=== PATIENT | female | born 1995 | race African-American/Black ===

== ENCOUNTER 2017-02-20 13:14 | Emergency (ER) | payer MEDICAID ==
[2017-02-20 13:40] VITALS: BP 143/91
[2017-02-20] MEDS ORDERED: ONDANSETRON 4 MG TAB.RAPDIS PO ONE (13:45)
--- NOTE | 2017-02-20 13:46 | ER Document Report ---
ED Medical Screen (RME) - General Chief Complaint: Nausea/Vomiting/Diarrhea Stated Complaint: ABDOMINAL PAIN/VOMITING/DIARRHEA Notes: 3 day history nausea vomiting diarrhea. Vomited on and again today at work. Has been nauseous the entire time. Has 3-4 episodes of diarrhea daily. Has been sweaty, no history of fever. LMP is now. TRAVEL OUTSIDE OF THE [place] IN LAST 30 DAYS: No - Related Data Allergies/Adverse Reactions: No Known Allergies Allergy (Verified 02/20/17 13:44) Past Medical History - Past Medical History Cardiac Medical History: Reports: Hx Hypertension - On Norvasc Denies: Hx Heart Attack Pulmonary Medical History: Denies: Hx Asthma, Hx Bronchitis, Hx COPD, Hx Pneumonia Neurological Medical History: Denies: Hx Seizures Renal/ Medical History: Denies: Hx Peritoneal Dialysis Musculoskeltal Medical History: Denies Hx Arthritis Past Surgical History: Reports: Hx Cholecystectomy, Hx Orthopedic Surgery - Nose - Immunizations Immunizations up to date: No Hx Diphtheria, Pertussis, Tetanus Vaccination: No Physical Exam - Vital signs Vitals: Temp Pulse Resp BP Pulse Ox 98.2 F 73 16 143/91 H 99 02/20/17 13:36 02/20/17 13:36 02/20/17 13:36 02/20/17 13:36 02/20/17 13:36 Course - Vital Signs Vital signs: Temp Pulse Resp BP Pulse Ox 98.2 F 73 16 143/91 H 99 02/20/17 13:36 02/20/17 13:36 02/20/17 13:36 02/20/17 13:36 02/20/17 13:36
[2017-02-20 14:43] LABS: HEMATOCRIT 23.9 % (36.0-47.0); HGB HCT DIFFERENCE -1.7; MEAN CORPUSCULAR HEMOGLOBIN 16.8 pg (27.0-33.4); RED BLOOD COUNT 4.42 10^6/uL (3.72-5.28); RED CELL DISTRIBUTION WIDTH 21.5 % (11.5-14.0); WHITE BLOOD COUNT 7.4 10^3/uL (4.0-10.5)
[2017-02-20 15:02] LABS: ALANINE AMINOTRANSFERASE 24 U/L (9-52); ALBUMIN 4.2 g/dL (3.5-5.0); ALKALINE PHOSPHATASE 51 U/L (38-126); ANION GAP 14 (5-19); ASPARTATE AMINO TRANSFERASE 18 U/L (14-36); BILIRUBIN,DIRECT 0.1 mg/dL (0.0-0.4); BILIRUBIN,TOTAL 0.4 mg/dL (0.2-1.3); BLOOD UREA NITROGEN 9 mg/dL (7-20); CARBON DIOXIDE 25 mmol/L (22-30); CHLORIDE 103 mmol/L (98-107); CREATININE RESULT 0.77 mg/dL (0.52-1.25); GLUCOSE 87 mg/dL (75-110); POTASSIUM 4.1 mmol/L (3.6-5.0); SODIUM 142.2 mmol/L (137-145); TOTAL PROTEIN 7.5 g/dL (6.3-8.2)
[2017-02-20 15:04] LABS: HEMOGLOBIN 7.4 g/dL (12.0-15.5)
[2017-02-20 15:13] LABS: BAND NEUTROPHILS % (MANUAL) 1 % (3-5); BASOPHILS % (MANUAL) 2 % (0-2); EOSINOPHILS % (MANUAL) 1 % (0-6); LYMPHOCYTES % (MANUAL) 23 % (13-45); TOTAL CELLS COUNTED 100
[2017-02-20 15:18] LABS: ANISOCYTOSIS 3+; HYPOCHROMASIA 2+; POLYCHROMASIA SLIGHT
[2017-02-20 15:19] LABS: OVALOCYTES 1+; SPHEROCYTES SLIGHT; TARGET CELLS 3+
[2017-02-20 15:20] LABS: MEAN CORPUSCULAR VOLUME 54 fl (80-97); MICROCYTOSIS 4+
[2017-02-20 15:21] LABS: POIKILOCYTOSIS 1+
--- NOTE | 2017-02-20 16:07 | ER Document Report ---
ED GI/ - General Chief Complaint: Nausea/Vomiting/Diarrhea Stated Complaint: ABDOMINAL PAIN/VOMITING/DIARRHEA Notes: Patient is being seen for nausea and vomiting and some abdominal pain which started about 3 days ago. She says on the , she was nauseated, on the , she actually vomited, and then yesterday, she had nausea without vomiting. Today at work, she vomited again. She's had diarrhea all 3 days. Generalized abdominal pain without any localization. Denies any chest pain or difficulty breathing or shortness of breath. Unaware of any fever. Patient is on her current menstrual cycle. Past history of cholecystectomy. Hypertension. TRAVEL OUTSIDE OF THE [place] IN LAST 30 DAYS: No - Related Data Allergies/Adverse Reactions: No Known Allergies Allergy (Verified 02/20/17 13:44) Past Medical History - Social History Smoking Status: Unknown if Ever Smoked Cigarette use (# per day): No Family History: DM, Hypertension, Other - Kidney disease Patient has suicidal ideation: No Patient has homicidal ideation: No - Past Medical History Cardiac Medical History: Reports: Hx Hypertension - On Norvasc Denies: Hx Heart Attack Pulmonary Medical History: Denies: Hx Asthma, Hx Bronchitis, Hx COPD, Hx Pneumonia Neurological Medical History: Denies: Hx Seizures Renal/ Medical History: Denies: Hx Peritoneal Dialysis Musculoskeltal Medical History: Denies Hx Arthritis Past Surgical History: Reports: Hx Cholecystectomy, Hx Orthopedic Surgery - Nose - Immunizations Immunizations up to date: No Hx Diphtheria, Pertussis, Tetanus Vaccination: No Review of Systems - Review of Systems Constitutional: denies: Fever Cardiovascular: denies: Chest pain Gastrointestinal: See HPI, Abdominal pain, Nausea, Vomiting Skin: No symptoms reported. denies: Rash Physical Exam - Vital signs Vitals: Temp Pulse Resp BP Pulse Ox 98.2 F 73 16 143/91 H 99 02/20/17 13:36 02/20/17 13:36 02/20/17 13:36 02/20/17 13:36 02/20/17 13:36 Interpretation: Normal - Notes Notes: PHYSICAL EXAMINATION: GENERAL: Well-appearing, in no acute distress. HEAD: Atraumatic, normocephalic. EYES: Pupils equal round and reactive to light, extraocular movements intact. ENT: oropharynx clear without exudates. Moist mucous membranes. NECK: Normal range of motion, supple. LUNGS: Breath sounds clear and equal bilaterally. HEART: Regular rate and rhythm without murmurs. ABDOMEN: Soft, only minimal tenderness to press throughout the abdomen. No localized tenderness. No masses felt. No guarding or rebound. BACK: No tenderness throughout entire back. EXTREMITIES: Normal range of motion without pain. NEUROLOGICAL: Normal speech, normal gait. Normal sensory, motor, and reflex exams. Awake, alert, and oriented x3. Cranial nerves normal. PSYCH: Normal mood, normal affect. SKIN: Warm, dry, no rashes. Course - Re-evaluation Re-evalutation: 02/20/17 20:21 Patient's labs are unremarkable except for the fact that she is anemic with a hemoglobin of 7.4. I questioned her as to whether she had sickle cell disease or trait and she says she thought she may have been told she had sickle cell trait. She does not note any other possible causes of anemia such as thalassemia. 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 Patient says she's currently on her menstrual cycle and does feel tired during these times. Her CBC indices suggesting iron deficient anemia. Borderline some iron and referred to local development technical lead. - Vital Signs Vital signs: Temp Pulse Resp BP Pulse Ox 98.2 F 73 16 143/91 H 99 02/20/17 13:36 02/20/17 13:36 02/20/17 13:36 02/20/17 13:36 02/20/17 13:36 - Laboratory Result Diagrams: 02/20/17 14:15 02/20/17 14:15 Laboratory results interpreted by me: 02/20/17 14:15 Hgb 7.4 L Hct 23.9 L MCV 54 L MCH 16.8 L MCHC 31.0 L RDW 21.5 H Band Neutrophils % 1 L Discharge - Discharge Clinical Impression: Vomiting and diarrhea, Viral illness Anemia Qualifiers: Anemia type: iron deficiency Iron deficiency anemia type: unspecified iron deficiency Qualified Code(s): D50.9 - Iron deficiency anemia, unspecified Condition: Stable Disposition: HOME, SELF-CARE Additional Instructions: VOMITING: Vomiting (or nausea without vomiting) can be caused by many other different problems. It can mean that something's wrong with the stomach, such as ulcers or inflammation or the intestinal tract, such as appendicitis. But it can also be a symptom of a problem that has nothing to do with the stomach or intestines. Vomiting is common with severe headaches, earaches, tonsillitis, and kidney infections, etc. We see it with pneumonia or heart attacks. Drugs can cause nausea and vomiting. Many abdominal problems cause vomiting; for example, gallstones, kidney stones, pancreatitis, and intestinal obstruction ( blocked bowels). In most cases, curing the vomiting depends on fixing the problem that caused it. For temporary relief, we may use an anti-nausea medicine. For home use, we can prescribe suppositories, chewable pills, pills that dissolve in the mouth, or liquid anti-nausea drugs. If the vomiting seems to be caused by a problem in the stomach, acid-suppressing drugs may be prescribed as well. It's important to avoid dehydration. Sip small amounts of clear liquids ( soft drinks, tea, broth, etc) . Try to take fluids frequently even if you are vomiting to prevent dehydration. Take increasing amounts of fluid and when liquids are being consumed successfully, advance to small amounts of bland food (toast, soups, mashed potatoes, etc.) until you are able to resume a regular diet. Avoid aspirin, tobacco, and alcohol. If the vomiting worsens, if the problem that's making you vomit worsens, or if there's evidence of bleeding in the stomach (such as black, tarry stool, or bloody or black vomit), you should return immediately. Also, return if abdominal pain worsens or becomes localized to one area or you develop high fever. Call your doctor if you aren't improved in 24 hours. DIARRHEA, NON-SPECIFIC: Diarrhea means frequent, watery stools. There are many causes. Any problem that keeps the intestinal tract from absorbing water from the stool can lead to diarrhea. A sudden new diarrhea problem is usually caused by a virus, food sensitivity, toxic bacteria, or drugs. In this case, we expect the problem to go away soon. Testing is done only if you seem seriously ill from the diarrhea. If you have chronic diarrhea, or diarrhea that keeps coming back, we need to find out why. Chronic diarrhea can be due to inflammation of the bowels such as Crohn's disease or ulcerative colitis, food sensitivity such as intolerance to lactose or wheat protein, irritable bowel syndrome, and other problems. If your diarrhea is a significant problem but it's not clear why you have it, we' ll refer you to a specialist for further testing. During an episode of diarrhea, drink small amounts (two to six ounces) of clear liquids (soft drinks, sport drinks, herb teas, broth, etc). Take fluids frequently to prevent dehydration. It's usually not a problem to take mild anti- diarrhea medication such as Kaopectate or Pepto-Bismol. As the diarrhea eases, advance to small amounts of bland food (mashed potato, toast) for 24 hours. Call the physician if blood appears in your vomit or stool, if vomiting lasts longer than 24 hours, if the abdominal pain worsens or becomes localized to one area, if you develop high fever, or if you become lightheaded and weak. VIRAL SYNDROME: The physician has diagnosed a viral infection. Viruses not only cause "colds," but can cause many different symptoms including generalized aching, fever, headache, cough, diarrhea, nausea, vomiting, and fatigue. The treatment, for the most part, is simply relief of symptoms. This means that antibiotics are usually not given. Rest, fluids, pain medications and, occasionally, medication for the specific symptoms that are most bothersome will be prescribed. Use good handwashing to avoid passing the virus to others. Shared toys should be cleaned with disinfectant. Clean the toilets, sinks, and counter surfaces in bathrooms. Launder clothing in hot water. Contact the physician if you develop any new or unusual symptoms such as severe headache, stiff neck, high fever, chest pain, productive cough, or shortness of breath. You should be rechecked if you don't see marked improvement within seven to 10 days. ANTINAUSEA MEDICATION: You have been given a medication to suppress nausea and vomiting. This type of medication can be given as a shot, pill, or suppository. It will usually last for many hours. Pills and shots usually last six to eight hours. For the typical illness, only one or two doses of the medication may be necessary. Mild lightheadedness may occur. This type of medicine can cause drowsiness. Do not drive or operate dangerous machinery while under its influence. Do not mix with alcohol. See your doctor at once if you have muscle spasms or tightness, or uncontrollable motions (particularly of the neck, mouth, or jaw). Persistent vomiting or severe lightheadedness should also be evaluated by the physician. FOLLOW-UP CARE: If you have been referred to a physician for follow-up care, call the physician s office for an appointment as you were instructed or within the next two days. If you experience worsening or a significant change in your symptoms, notify the physician immediately or return to the Emergency Department at any time for re-evaluation. Anemia You have been found to have a significant anemia (a lower than normal amount of red blood cells). Anemia can be due to iron deficiency, vitamin deficiency, abnormal bleeding, or internal diseases. Usually, further tests are necessary to find the exact cause of the anemia. The most common cause of anemia is iron deficiency, often brought on by blood loss. This can be treated with iron supplements. If this appears to be the most likely cause, iron tablets may be prescribed even before all tests are complete. Contact the doctor at once if you note black or tarry-looking stools, bloody vomiting, shortness of breath, chest pain, or faintness. Anemia, Iron Deficiency You have anemia (a lower than normal amount of red blood cells). Our tests show it's due to lack of iron in your body. In infants and children, iron deficiency is usually due to lack of iron in the diet. In adults, it's most often caused by blood loss (heavy periods or intestinal bleeding) or by . If the cause of iron deficiency is not clear, we evaluate for hidden intestinal bleeding. Another possible cause is failure to absorb iron properly. Iron-deficiency is treated with iron supplements. Iron pills can upset your stomach and cause constipation. Taking it with food decreases nausea. Expect the stool to become darker (but not black). Taking iron with a juice high in vitamin C (orange juice, tomato juice) increases absorption. You can increase your dietary iron by eating liver, oysters, and lean beef ; wheat germ, peas, and lentils; and molasses, dried prunes, spinach, and broccoli. Contact the doctor at once if you note black or tarry-looking stools, bloody vomiting, shortness of breath, chest pain, or faintness. Recommend you follow up with a development technical lead, and I provided information for your contact Dr. Chan, with a local development technical lead. Prescriptions: Ferrous Sulfate 325 mg PO BID #60 tablet. Promethazine HCl [Phenergan 25 mg Tablet] 1 - 2 tab PO Q6H PRN #15 tablet PRN Reason: Forms: Return to Work Referrals: ABEL CHAN MD [ACTIVE STAFF] - Follow up in 1 week
== END 2017-02-20 16:20 | disposition home or self-care (01) ==
LOC: ER 13:14
DX: R11.2 Nausea with vomiting, unspecified (principal); R19.7 Diarrhea, unspecified; B34.9 Viral infection, unspecified; D50.9 Iron deficiency anemia, unspecified; R10.84 Generalized abdominal pain; I10 Essential (primary) hypertension; Z90.49 Acquired absence of other specified parts of digestive tract
CPT/HCPCS: 99283; 36415; 84703; 85025; 80053; S0119

== ENCOUNTER 2017-12-18 14:54 | Emergency (ER) | payer SELFPAY ==
[2017-12-18 15:06] VITALS: BP 173/93
== END 2017-12-18 16:34 | disposition left against medical advice (07) ==
LOC: ER 14:54
DX: Z53.21 Procedure and treatment not carried out due to patient leaving prior to being seen by health care provider (principal)

== ENCOUNTER 2017-12-19 16:27 | Emergency (ER) | payer SELFPAY ==
[2017-12-19] MEDS ORDERED: IBUPROFEN 600 MG TABLET PO ONE (17:37)
--- NOTE | 2017-12-19 17:41 | ER Document Report ---
ED Skin Rash/Insect Bite/Abscs - General Chief Complaint: Skin Problem Stated Complaint: POSSIBLE BUG BITE Time Seen by Provider: 12/19/17 17:29 Mode of Arrival: Ambulatory Information source: Patient Notes: 22-year-old female presents to ED for complaint of bug bite to the right hand 3 days. She states she has pain and swelling to the right hand. There is no open wounds. Minimal swelling noted. TRAVEL OUTSIDE OF THE [place] IN LAST 30 DAYS: No - HPI Patient complains to provider of: Possible insect bite Onset: Other - 3 days Onset/Duration: Gradual Quality of pain: Other - Stinging to hang Severity: Mild Pain Level: 1 Skin Character: Erythema - Mild swelling to right hand Quality of rash: Painful - Mild Identify cause: Yes - States insect bite Exacerbated by: Denies Relieved by: Denies Similar symptoms previously: Yes Recently seen / treated by doctor: No - Related Data Allergies/Adverse Reactions: No Known Allergies Allergy (Verified 12/19/17 16:27) Past Medical History - General Information source: Patient - Social History Smoking Status: Never Smoker Cigarette use (# per day): No Chew tobacco use (# tins/day): No Smoking Education Provided: No Frequency of alcohol use: None Drug Abuse: None Lives with: Family Family History: DM, Hypertension, Other - Kidney disease. denies: Arthritis, CAD, COPD, CVA, Hyperlipidemia, Malignancy, Thyroid Disfunction Patient has suicidal ideation: No Patient has homicidal ideation: No - Past Medical History Cardiac Medical History: Reports: Hx Hypertension - On Norvasc Pulmonary Medical History: Reports: None EENT Medical History: Reports: None Neurological Medical History: Reports: None Endocrine Medical History: Reports: None Renal/ Medical History: Reports: None Malignancy Medical History: Reports: None GI Medical History: Reports: None Musculoskeltal Medical History: Reports None Skin Medical History: Reports None Psychiatric Medical History: Reports: None Traumatic Medical History: Reports: None Infectious Medical History: Reports: None Past Surgical History: Reports: Hx Cholecystectomy, Hx Nose Surgery - Polyps - Immunizations Immunizations up to date: No Hx Diphtheria, Pertussis, Tetanus Vaccination: No Review of Systems - Review of Systems Notes: Constitutional: [PRESENT: as per HPI. ABSENT: chills, fever(s), headache(s), weight gain, weight loss] Eyes: [ABSENT: visual disturbances] Ears: [ABSENT: hearing changes] Cardiovascular: [ABSENT: chest pain, dyspnea on exertion, edema, orthropnea, palpitations] Respiratory: [ABSENT: cough, hemoptysis] Gastrointestinal: [ABSENT: abdominal pain, constipation, diarrhea, hematemesis, hematochezia, nausea, vomiting] Genitourinary: [ABSENT: dysuria, hematuria] Musculoskeletal: [ABSENT: joint swelling] Integumentary: Insect bite to right hand 3 days ago Neurological: [ABSENT: abnormal gait, abnormal speech, confusion, dizziness, focal weakness, syncope] Psychiatric: [ABSENT: anxiety, depression, homicidal ideation, suicidal ideation ] Endocrine: [ABSENT: cold intolerance, heat intolerance, menstrual abnormalities , polydipsia, polyuria] Hematologic/Lymphatic: [ABSENT: easy bleeding, easy bruising, lymphadenopathy] Physical Exam - Vital signs Vitals: Temp Pulse Resp BP Pulse Ox 98.3 F 77 16 139/94 H 100 12/19/17 16:36 12/19/17 16:36 12/19/17 16:36 12/19/17 16:36 12/19/17 16:36 - Notes Notes: PHYSICAL EXAMINATION: GENERAL: Well-appearing, well-nourished and in no acute distress. HEAD: Atraumatic, normocephalic. EYES: Pupils equal round and reactive to light, extraocular movements intact, conjunctiva are normal. ENT: Nares patent, oropharynx clear without exudates. Moist mucous membranes. NECK: Normal range of motion, supple without lymphadenopathy LUNGS: Breath sounds clear to auscultation bilaterally and equal. No wheezes rales or rhonchi. HEART: Regular rate and rhythm without murmurs ABDOMEN: Soft, nontender, nondistended abdomen. No guarding, no rebound. No masses appreciated. Female : deferred Musculoskeletal: Normal range of motion, no pitting or edema. No cyanosis. NEUROLOGICAL: Cranial nerves grossly intact. Normal speech, normal gait. Normal sensory, motor exams PSYCH: Normal mood, normal affect. SKIN: Minimal redness and swelling to the right hand from insect bite 3 days ago. No signs or symptoms of infection very minimal swelling normal for an insect bite. Course - Re-evaluation Re-evalutation: 12/20/17 01:18 Patient given instructions on use of ibuprofen and Benadryl for insect bites. Patient also given instructions for ice to reduce swelling. Patient verbalized understanding of instructions. - Vital Signs Vital signs: Temp Pulse Resp BP Pulse Ox 98.3 F 71 16 143/97 H 100 12/19/17 16:36 12/19/17 18:00 12/19/17 18:00 12/19/17 18:00 12/19/17 18:00 Discharge - Discharge Clinical Impression: Insect bite of right hand with local reaction Qualifiers: Encounter type: initial encounter Qualified Code(s): S60.561A - Insect bite ( nonvenomous) of right hand, initial encounter Condition: Stable Disposition: HOME, SELF-CARE Instructions: Family Physicians / Practices Additional Instructions: Insect Bites You have been bitten by an insect. These bites can cause two types of swelling: an initial swelling due to insect saliva or injected poison, and a late reaction due to your body's allergic reaction. This initial local reaction may be uncomfortable but is not dangerous. Often there's an itchy "hive" at the bite location. This is treated with antihistamines, cold compresses, and resting the affected body part. The later reaction often develops about the second day. The entire area becomes very swollen, red, itchy, and tender. This is an allergic reaction. Your body is attacking the leftover insect saliva or venom. This type of allergy is unpleasant, but not dangerous. We treat this swelling with cortisone -type medicine. Sometimes we use antibiotics if we're worried about infection. Antihistamines help with the itch. If you develop a fever, chills, a red streak, or swollen glands in the area of the bite, infection may be starting. Return at once. Antihistamines An antihistamine has been prescribed to control your symptoms. Antihistamines are used for many reasons, including itching, watering eyes, runny nose, allergic swelling, hives, and insect stings. Antihistamines may cause drowsiness, especially with the first dose. Do not operate machinery or drive while under the effects of the medication. Other common side effects include dry mouth and eyes. In older persons, antihistamines can occasionally cause urinary retention, constipation, and trouble focusing the eyes. Do not combine the medication with alcohol, or with any other medication without talking to your doctor. Acetaminophen Acetaminophen may be taken for pain relief or fever control. It's much safer than aspirin, offering a wider range of "safe" dosages. It is safe during . Some brand names are Tylenol, Panadol, Datril, Anacin 3, Tempra, and Liquiprin. Acetaminophen can be repeated every four hours. The following are maximum recommended dosages: WEIGHT Dose Drops Elixir Chewable( 80mg) (LBS.) drprs=droppers tsp=teaspoon 6 40 mg .4 ml (1/2) 6-11 80 mg .8 ml (full) 1/2 tsp 1 tab 12-16 120 mg 1 1/2 drprs 3/4 tsp 1 1/2 tabs 17-23 160 mg 2 drprs 1 tsp 2 tabs 24-30 240 mg 3 drprs 1 1/2 tsp 3 tabs 30-35 320 mg 2 tsp 4 tabs 36-41 360 mg 2 1/4 tsp 4 1 /2 tabs 42-47 400 mg 2 1/2 tsp 5 tabs 48-53 480 mg 3 tsp 6 tabs 54-59 520 mg 3 1/4 tsp 6 1 /2 tabs 60-64 560 mg 3 1/2 tsp 7 tabs 65-70 600 mg 3 3/4 tsp 7 1 /2 tabs 71-76 640 mg 4 tsp 8 tabs 77-82 720 mg 4 1/2 tsp 9 tabs 83-88 800 mg 5 tsp 10 tabs >89 pounds or adults 650 mg to 900 mg Acetaminophen can be repeated every four hours. Maximum daily dose not to exceed 4000 mg. These maximum recommended dosages are slightly higher than the dosages written on the product container, but these dosages are very safe and well below the toxic dosage for acetaminophen. Ibuprofen Ibuprofen is an excellent, safe drug for pain control. In addition, it has potent antiinflammatory effects which are beneficial, especially in the treatment of injuries, arthritis, or tendonitis. It's best to take ibuprofen with food. Persons with ulcer disease or allergy to aspirin should notify their physician of this before taking ibuprofen. Take the medication exactly as prescribed. Don't take additional doses unless instructed to do so by your doctor. If you develop wheezing, shortness of breath, hives, faintness, stomach pain, vomiting, or dark black stools, return for re-evaluation at once. Ice Packs Apply ice packs frequently against the painful area. Many different schedules are recommended, such as "20 minutes on, 20 minutes off" or "one hour ice, two hours rest." If you need to work, you may need to go longer between ice treatments. You should plan to have the area ice packed AT LEAST one fourth of the time. The ice should be applied over the wrap, tape, or splint, or over a layer of cloth -- not directly against the skin. Some ice bags have a built-in cloth and can be put directly on the skin. FOLLOW-UP CARE: If you have been referred to a physician for follow-up care, call the physician s office for an appointment as you were instructed or within the next two days. If you experience worsening or a significant change in your symptoms, notify the physician immediately or return to the Emergency Department at any time for re-evaluation. Forms: Elevated Blood Pressure, Return to Work Referrals: DEUCE CORDOVA MD [Primary Care Provider] - Follow up as needed
[2017-12-19 18:49] VITALS: BP 143/97
== END 2017-12-19 18:00 | disposition home or self-care (01) ==
LOC: ER 16:27
DX: S60.561A Insect bite (nonvenomous) of right hand, initial encounter (principal); M79.641 Pain in right hand; M79.89 Other specified soft tissue disorders; W57.XXXA Bitten or stung by nonvenomous insect and other nonvenomous arthropods, initial encounter
CPT/HCPCS: 99283

== ENCOUNTER 2018-02-28 18:17 | Emergency (ER) | payer SELFPAY ==
--- NOTE | 2018-02-28 21:00 | RADIOLOGY REPORT (SQ) ---
EXAM DESCRIPTION: CHEST 2 VIEWS COMPLETED DATE/TIME: 02/28/2018 8:43 pm REASON FOR STUDY: Chest pain COMPARISON: None. EXAM PARAMETERS: NUMBER OF VIEWS: two views TECHNIQUE: Digital Frontal and Lateral radiographic views of the chest acquired. RADIATION DOSE: NA LIMITATIONS: none FINDINGS: LUNGS AND PLEURA: No opacities, masses or pneumothorax. No pleural effusion. MEDIASTINUM AND HILAR STRUCTURES: No masses or contour abnormalities. HEART AND VASCULAR STRUCTURES: Heart normal size. No evidence for failure. BONES: No acute findings. HARDWARE: None in the chest. OTHER: No other significant finding. IMPRESSION: NO ACUTE RADIOGRAPHIC FINDING IN THE CHEST. TECHNICAL DOCUMENTATION: JOB ID: [id number] [place]-72 2010 [employer]- All Rights Reserved Reading location - IP/workstation name: [email or web address]
[2018-02-28] MEDS ORDERED: ONDANSETRON HCL INJ/PF 4 MG/2 ML SDV IV ONE (22:12)
[2018-02-28] MEDS ORDERED: NORMAL SALINE 1000 ML 1,000 ML IV ONE (22:12)
--- NOTE | 2018-02-28 22:13 | ER Document Report ---
ED General - General Chief Complaint: Chest Pain Stated Complaint: CHEST PAIN Time Seen by Provider: 02/28/18 22:00 Notes: Patient is a 22-year-old female presents with complaint of chest pain. Chest pain is substernal worse when she coughs and also if she was a certain way. She says she has been coughing a bit the last few days. No fevers. No vomiting. No diarrhea. No history of heart disease. No recent leg pain or leg swelling. No recent surgeries. She did have a recent flight from [place]. She said it went fine and she did not have any problems during the flight. She is on control. She does not smoke. Does have a history of hypertension has been off her medication for approximately a month. She said she is normally on Norvasc. TRAVEL OUTSIDE OF THE [place] IN LAST 30 DAYS: No - Related Data Allergies/Adverse Reactions: No Known Allergies Allergy (Verified 02/28/18 18:19) Past Medical History - Social History Smoking Status: Never Smoker Chew tobacco use (# tins/day): No Frequency of alcohol use: None Drug Abuse: None Family History: DM, Hypertension, Other - Kidney disease. denies: Arthritis, CAD, COPD, CVA, Hyperlipidemia, Malignancy, Thyroid Disfunction Patient has suicidal ideation: No Patient has homicidal ideation: No - Past Medical History Cardiac Medical History: Reports: Hx Hypertension - On Norvasc Denies: Hx Heart Attack Pulmonary Medical History: Denies: Hx Asthma, Hx Bronchitis, Hx COPD, Hx Pneumonia Neurological Medical History: Denies: Hx Seizures Renal/ Medical History: Denies: Hx Peritoneal Dialysis Musculoskeltal Medical History: Denies Hx Arthritis Past Surgical History: Reports: Hx Cholecystectomy, Hx Nose Surgery - Polyps, Hx Orthopedic Surgery - Nose - Immunizations Immunizations up to date: No Hx Diphtheria, Pertussis, Tetanus Vaccination: No Review of Systems - Review of Systems Notes: My Normal Review Basic REVIEW OF SYSTEMS: CONSTITUTIONAL : Denies fever, chills, or sweats. Denies recent illness. CARDIOVASCULAR: Chest pain RESPIRATORY: Denies cough, cold, or chest congestion. Denies shortness of breath, difficulty breathing, or wheezing. GASTROINTESTINAL: Denies abdominal pain. Denies nausea, vomiting, or diarrhea. Denies constipation. Last BM: MUSCULOSKELETAL: Denies neck or back pain or joint pain or swelling. SKIN: Denies rash or skin lesions. NEUROLOGICAL: Denies altered mental status or loss of consciousness. Denies headache. Denies weakness or paralysis or loss of use of either side. Denies problems with gait or speech. Denies sensory or motor loss. ALL OTHER SYSTEMS REVIEWED AND NEGATIVE. Physical Exam - Vital signs Vitals: Temp Pulse Resp BP Pulse Ox 98.1 F 82 16 144/79 H 99 02/28/18 18:30 02/28/18 18:30 02/28/18 18:30 02/28/18 18:30 02/28/18 18:30 - Notes Notes: General Appearance: Well nourished, alert, cooperative, no acute distress, no obvious discomfort. Well-appearing. Vitals: reviewed, See vital signs table. Eyes: PERRL, EOMI, Conjuctiva clear Chest wall: Pain is easily reproducible to palpation over the anterior chest wall close to the sternal border. Lungs: No wheezing, No rales, No rhonci, No accessory muscle use, good air exchange bilaterally. Heart: Normal rate, Regular rythm, No murmur, no rub Extremities: strength 5/5 in all extremities, good pulses in all extremities, no swelling or tenderness in the extremities, no edema. Skin: warm, dry, appropriate color, no rash Neuro: speech clear, oriented x 3, normal affect, responds appropriately to questions. Course - Re-evaluation Re-evalutation: 03/01/18 05:19 Patient's pain is easily reproducible to palpation also easily reproduced with coughing. Suspect she either has gastroenteritis or pleurisy. Do not suspect coronary disease. Her only risk factor is hypertension. She is otherwise a young healthy 22-year-old. She looks well and her EKG does not show any concerning findings. I will re-prescribe her Norvasc for her. I encouraged her strongly follow-up closely with her doctor. I encouraged her return to ER immediately if she has worsening recurrent pain, difficulty breathing, or she feels unwell. I do not suspect PE as she is not tachycardic, not tachypneic, not hypoxic, and does not have any leg pain or leg swelling. Dictation of this chart was performed using voice recognition software; therefore, there may be some unintended grammatical errors. 03/01/18 05:20 - Vital Signs Vital signs: Temp Pulse Resp BP Pulse Ox 97.7 F 66 18 147/98 H 100 02/28/18 22:15 02/28/18 22:15 02/28/18 22:15 02/28/18 22:15 02/28/18 22:15 - EKG Interpretation by Me Additional EKG results interpreted by me: 02/28/18 22:02 EKG is reviewed and interpreted by me. EKG shows sinus rhythm with a rate of [address] segment elevation or depression. No ischemic T-wave inversions. SC interval, QRS duration, QTc intervals are within normal range. No old EKG available for comparison. Discharge - Discharge Clinical Impression: Chest pain Qualifiers: Chest pain type: unspecified Qualified Code(s): R07.9 - Chest pain, unspecified Condition: Good Disposition: HOME, SELF-CARE Additional Instructions: Please take your high blood pressure as prescribed and follow up with your doctor in 3-5 days for close reevaluation. Currently I do not see any evidence of anything dangerous causing your chest pain. Please take Motrin or Tylenol for your pain. Please return to the ER immediately if you have worsening chest pain, fevers, difficulty breathing, or feel unwell. Prescriptions: Amlodipine Besylate [Norvasc 5 mg Tablet] 5 mg PO DAILY #30 tablet Forms: Return to Work Referrals: KEN CORDOVA MD [Primary Care Provider] - 03/02/18
[2018-02-28 22:19] VITALS: BP 147/98
[2018-02-28] MEDS ORDERED: AMLODIPINE BESYLATE 5 MG TABLET PO ONE (22:20)
--- NOTE | 2018-03-01 08:13 | EKG REPORT ---
SEVERITY:- NORMAL ECG - SINUS RHYTHM : Confirmed by: Mateo Nunez MD 01-Mar-2018 08:13:01
== END 2018-02-28 22:40 | disposition home or self-care (01) ==
LOC: ER 18:17
DX: R07.89 Other chest pain (principal); R05 Cough; Z79.3 Long term (current) use of hormonal contraceptives; I10 Essential (primary) hypertension
CPT/HCPCS: 71046; 93005; 93010; 99285

== ENCOUNTER 2019-06-30 10:56 | Emergency (ER) | payer SELFPAY ==
[2019-06-30] MEDS ORDERED: ACETAMINOPHEN 325 MG TABLET PO ONE (11:58)
--- NOTE | 2019-06-30 11:58 | ER Document Report ---
HPI - HPI Time Seen by Provider: 06/30/19 11:42 Pain Level: 4 Context: Patient is a 23-year-old female presents to the emergency department with a chief complaint of left rib pain. Patient states she woke up this morning with left lateral and posterior rib pain. Patient states this is worse when she takes a deep breath. Patient denies shortness of breath, chest pain, recent cough or cold. Patient states he rib pain is worse with movement. Patient denies trauma or fall. Patient reports she is 9 weeks and is currently denying any vaginal bleeding, vaginal discharge or abdominal pain. Patient denies urinary symptoms. Patient denies fever. - CONSTITUTIONAL Constitutional: DENIES: Fever, Chills - REPRODUCTIVE Reproductive: DENIES: : Past Medical History - General Information source: Patient - Social History Smoking Status: Never Smoker Frequency of alcohol use: None Drug Abuse: None Lives with: Spouse/Significant other Family History: DM, Hypertension, Other - Kidney disease. denies: Arthritis, CAD, COPD, CVA, Hyperlipidemia, Malignancy, Thyroid Disfunction Patient has suicidal ideation: No Patient has homicidal ideation: No - Past Medical History Cardiac Medical History: Reports: Hx Hypertension - On Norvasc Denies: Hx Heart Attack Pulmonary Medical History: Reports: None Denies: Hx Asthma, Hx Bronchitis, Hx COPD, Hx Pneumonia EENT Medical History: Reports: None Neurological Medical History: Reports: None. Denies: Hx Seizures Endocrine Medical History: Reports: None Renal/ Medical History: Reports: None. Denies: Hx Peritoneal Dialysis Malignancy Medical History: Reports: None GI Medical History: Reports: None Musculoskeletal Medical History: Reports None, Denies Hx Arthritis Skin Medical History: Reports None Psychiatric Medical History: Reports: None Traumatic Medical History: Reports: None Infectious Medical History: Reports: None Past Surgical History: Reports: Hx Cholecystectomy, Hx Nose Surgery - Polyps, Hx Orthopedic Surgery - Nose - Immunizations Immunizations up to date: No Hx Diphtheria, Pertussis, Tetanus Vaccination: No Vertical Provider Document - CONSTITUTIONAL Agree With Documented VS: Yes Exam Limitations: No Limitations General Appearance: No Apparent Distress - INFECTION CONTROL TRAVEL OUTSIDE OF THE [place] IN LAST 30 DAYS: No - HEENT HEENT: Atraumatic, Normocephalic, PERRLA - NECK Neck: Normal Inspection - RESPIRATORY Respiratory: Breath Sounds Normal, No Respiratory Distress Notes: Patient has tenderness to palpation to the left lateral and posterior ribs. There is no edema, ecchymosis, abrasion or erythema noted to the skin. - CARDIOVASCULAR Cardiovascular: Regular Rate, Regular Rhythm - GI/ABDOMEN Gastrointestinal: Abdomen Soft, Abdomen Non-Tender, Normal Bowel Sounds - MUSCULOSKELETAL/EXTREMETIES Musculoskeletal/Extremeties: FROM, Non-Tender - NEURO Level of Consciousness: Awake, Alert, Appropriate - DERM Integumentary: Warm, Dry, No Rash Course - Re-evaluation Re-evalutation: 06/30/19 11:56 Upon initial assessment patient resting comfortably on chair. At this time I do not believe patient requires imaging. I did inform the patient to take Tylenol as needed for pain and to use cool or warm compresses to the site. I did inform the patient she could have slept on her side wrong as this does appear to be musculoskeletal in nature. Patient verbalizes understanding and was given strict return precautions. - Vital Signs Vital signs: Temp Pulse Resp BP Pulse Ox 97.8 F 84 20 147/80 H 100 06/30/19 11:01 06/30/19 11:01 06/30/19 11:01 06/30/19 11:01 06/30/19 11:01 Discharge - Discharge Clinical Impression: Rib pain on left side, Musculoskeletal pain Condition: Stable Disposition: HOME, SELF-CARE Additional Instructions: Today you are seen in the emergency department for left rib pain. At this time I do not think you require imaging such as an x-ray since there was no trauma or fall. Your symptoms are consistent with musculoskeletal pain. Please use cool or warm compresses to the site. Please return to the emergency department if the pain becomes severe or he develops swelling to the area, discoloration to the skin or any new or worsening symptoms. Muscle Strain You have strained a muscle -- torn the fibers within the muscle. This often occurs with strenuous exertion, or during an injury that suddenly stretches the muscle. The seriousness of a strain varies. Some strains heal within days, others cause problems for months. X-rays cannot show a muscle strain. X-rays are taken only if symptoms suggest that a fracture could be present. The usual treatment of a muscle strain is rest and ice packs. Sometimes, a sling, splint, or crutches may be necessary to rest the muscle. The muscle can be used again once pain subsides. Severe strains require a special exercise and stretching program to prevent permanent stiffness and disability. Your doctor will advise you if this will be necessary. Call the doctor immediately if pain or swelling becomes severe, or if numbness or discoloration develop. Forms: Return to Work Referrals: KEN CORDOVA MD [Primary Care Provider] - Follow up as needed
[2019-06-30 12:07] VITALS: BP 133/84
== END 2019-06-30 12:06 | disposition home or self-care (01) ==
LOC: ER 10:56
DX: O26.891 Other specified pregnancy related conditions, first trimester (principal); R07.81 Pleurodynia; M79.10 Myalgia, unspecified site; O16.1 Unspecified maternal hypertension, first trimester; Z3A.09 9 weeks gestation of pregnancy
CPT/HCPCS: 99283

== ENCOUNTER → 2020-01-18 | Outpatient (CLI) | payer MEDICAID ==
[2020-01-18 12:44] LABS: APPEARANCE,URINE SLIGHTLY-CLOUDY; BILIRUBIN,URINE NEGATIVE (NEGATIVE); GLUCOSE, URINE NEGATIVE (NEGATIVE); KETONES,URINE NEGATIVE (NEGATIVE); LEUKOCYTE ESTERASE,URINE LARGE (NEGATIVE); NITRITE,URINE NEGATIVE (NEGATIVE); PROTEIN,URINE 30 mg/dL (NEGATIVE); URINE SPECIFIC GRAVITY 1.023
[2020-01-18 12:46] LABS: COLOR,URINE DARK YELLOW
[2020-01-18 13:02] LABS: URINE AMPHETAMINES SCREEN NEGATIVE; URINE BARBITURATES SCREEN NEGATIVE; URINE BENZODIAZEPINES SCREEN NEGATIVE; URINE COCAINE SCREEN NEGATIVE; URINE METHADONE SCREEN NEGATIVE; URINE PHENCYCLIDINE SCREEN NEGATIVE
[2020-01-18 13:07] LABS: URINE MARIJUANA (THC) SCREEN UNCONFIRMED POSITIVE
== END ==
LOC: LC 11:48
PROVIDERS: ATTEND Student in an Organized Health Care Education/Training Program
DX: Z34.93 Encounter for supervision of normal pregnancy, unspecified, third trimester (principal); Z3A.37 37 weeks gestation of pregnancy
CPT/HCPCS: 80307; 81005

== ENCOUNTER 2020-01-30 23:23 | Inpatient (IN) | payer MEDICAID ==
[2020-01-31 00:42] LABS: HEMOGLOBIN 11.8 g/dL (12.0-15.5); MEAN CORPUSCULAR HEMOGLOBIN 24.9 pg (27.0-33.4); MEAN CORPUSCULAR HGB CONC 33.7 g/dL (32.0-36.0); MEAN CORPUSCULAR VOLUME 74 fl (80-97); PLATELET COUNT 247 10^3/uL (150-450); RED BLOOD COUNT 4.74 10^6/uL (3.72-5.28); RED CELL DISTRIBUTION WIDTH 16.1 % (11.5-14.0); WHITE BLOOD COUNT 14.8 10^3/uL (4.0-10.5)
[2020-01-31 00:58] LABS: APPEARANCE,URINE CLEAR; BILIRUBIN,URINE NEGATIVE (NEGATIVE); COLOR,URINE YELLOW; GLUCOSE, URINE NEGATIVE (NEGATIVE); KETONES,URINE NEGATIVE (NEGATIVE); LEUKOCYTE ESTERASE,URINE NEGATIVE (NEGATIVE); NITRITE,URINE NEGATIVE (NEGATIVE); PROTEIN,URINE NEGATIVE (NEGATIVE); URINE SPECIFIC GRAVITY 1.009
[2020-01-31] MEDS ORDERED: MAG HYDROX/AL HYDROX/SIMETH SUSP 30 ML UDCUP PO PRN (00:59)
[2020-01-31] MEDS ORDERED: RINGERS SOLUTION,LACTATED 1,000 ML IV ONE (00:59)
[2020-01-31] MEDS ORDERED: RINGERS SOLUTION,LACTATED 1,000 ML IV PRN (00:59)
[2020-01-31] MEDS ORDERED: DINOPROSTONE 10 MG VAGINAL INSERT.SR PV ONE (00:59)
[2020-01-31] MEDS ORDERED: ZOLPIDEM TARTRATE 5 MG TABLET PO PRN ×2 (00:59→21:29)
[2020-01-31] MEDS ORDERED: ACETAMINOPHEN 325 MG TABLET PO PRN (00:59)
[2020-01-31 01:01] LABS: ALBUMIN 3.3 g/dL (3.5-5.0); ALKALINE PHOSPHATASE 133 U/L (38-126); ANION GAP 5 (5-19); ASPARTATE AMINO TRANSFERASE 17 U/L (14-36); BILIRUBIN,DIRECT 0.2 mg/dL (0.0-0.4); BILIRUBIN,TOTAL 0.6 mg/dL (0.2-1.3); BLOOD UREA NITROGEN 6 mg/dL (7-20); CALCIUM 9.3 mg/dL (8.4-10.2); CARBON DIOXIDE 26 mmol/L (22-30); CHLORIDE 102 mmol/L (98-107); GLUCOSE 82 mg/dL (75-110); POTASSIUM 4.5 mmol/L (3.6-5.0); TOTAL PROTEIN 7.1 g/dL (6.3-8.2); URIC ACID 5.2 mg/dL (2.5-6.2)
[2020-01-31 01:08] LABS: URINE AMPHETAMINES SCREEN NEGATIVE; URINE BARBITURATES SCREEN NEGATIVE; URINE BENZODIAZEPINES SCREEN NEGATIVE; URINE COCAINE SCREEN NEGATIVE; URINE METHADONE SCREEN NEGATIVE; URINE PHENCYCLIDINE SCREEN NEGATIVE
[2020-01-31 01:12] LABS: URINE MARIJUANA (THC) SCREEN UNCONFIRMED POSITIVE
[2020-01-31] MEDS ORDERED: DINOPROSTONE 10 MG VAGINAL INSERT.SR ONE (01:17)
[2020-01-31 01:27] LABS: UR PRO/CREAT RATIO RESULT 0.2 mg/mg (0.0-0.2); URINE CREATININE 82.9 mg/dL (16-327); URINE PROTEIN 17.7 mg/dL (<12)
[2020-01-31] MEDS ORDERED: MISOPROSTOL 0.2 MG TABLET ONE (01:34)
[2020-01-31] MEDS ORDERED: OXYTOCIN 10 UNIT/ML VIAL ONE (01:34)
[2020-01-31] MEDS ORDERED: OXYTOCIN/NORMAL SALINE 0 UNIT/0 ML RTUINJ ONE (01:35)
[2020-01-31] MEDS ORDERED: LIDOCAINE 1% INJ-PF (10 MG/ML) 30 ML SDV ONE (01:35)
[2020-01-31] MEDS ORDERED: HYDRALAZINE HCL INJ/PF 20 MG/1 ML SDV IV ONE (01:39)
--- NOTE | 2020-01-31 01:39 | Admission Physical ---
Datetime Report Generated by CPN: 01/31/2020 01:38 CURRENT ADMISSION Chief Complaint: Uterine Contractions; Vaginal Bleeding Indication for Induction: Gestational HTN; PreEclampsia Admit Impression : Term, Intrauterine ; No Active Labor; Intact Membranes Admit Plan: Admit to Unit; Initiate Labor Induction Protocol ALLERGIES Medication Allergies: No Medication Allergies: No Known Allergies (06/30/2019) OBSTETRICAL HISTORY EDC: 02/04/2020 00:00 : 1 Para: 0 Gestational Diabetes: No Rh Sensitization: No Incompetent Cervix: No SORAIDA: No Infertility: No ART Treatment: No Uterine Anomaly: No Hx Previous C/S: No Macrosomia: No Hx Loss/Stillborn: No PIH: No Hx : No Placenta Previa/Abruption: No Depression/PP Depression: No PTL/PROM: No Post Hemorrhage: No Current Procedures: Ultrasound Obstetrical History Comments: G1-Current SEE RECORDS Alcohol: No Marijuana : Yes Marijuana Frequency: Occasional Marijuana Comments: pt stated a couple times within the last month Cocaine: No Other Illicit Drugs: No Cigarettes: Never Smoker. 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 Heart Disease: No Hosp/Surgery: Yes Autoimmune Disorder: No Anesthetic Complications: No Kidney Disease: No Abnormal Pap Smear: No Neuro/Epilepsy: No Psychiatric Disorders: No Other Medical Diseases: No Hepatitis/Liver Disease: No Significant Family History: No Varicosities/Phlebitis: No Trauma/Violence : No Thyroid Dysfunction: No Medical History Comments: Gall bladder-2015, polup removal from nose-2006 INFECTIOUS HISTORY Gonorrhea: No Genital Herpes: No Chlamydia: No Tuberculosis: No Syphilis: No Hepatitis: No HIV/AIDS Exposure: No Rash or Viral Illness: No HPV: No PHYSICAL EXAM General: Normal HEENT: Normal Neurologic: Normal Thyroid: Deferred Heart: Normal Lungs: Normal Breast: Deferred Back: Normal Abdomen: Normal Genitourinary Exam: Normal Extremities: Normal DTRs: Normal Pelvic Type: Adequate Details Vital Signs: mild range BPs VAGINAL EXAM Dilatation: 1 Effacement: 50 Station: -3 Contraction Comments: irreg FETUS A EGA: 39.3 Monitoring: External US FHR- Baseline: 130 Variability: Moderate 6-25bpm Accelerations: 15X15 Decelerations: None FHR Category: Category I Presentation: Vertex Admit Comment: 24yo at 39+3ega presents with irregular contractions and headache not releived with tylenol. GHTN /CHTN with prob superimpsed preE due to symptoms. GBS negative. Sickle cell trait. Admit for cervidil. Anticipat . IOL. PLANS FOR LABOR AND DELIVERY Labor and Delivery: None Pain Management: Epidural Feeding Preference: Both Benefit of Breast Feed Discussed: Yes Circumcision: N/A INFORMED CONSENT Informed Consent Obtained: Vaginal Delivery; Induction of Labor; Risks, Benefits and Alternatives Discussed Signature: with User ID: [email or web address]
[2020-01-31] MEDS ORDERED: MAG HYDROX/AL HYDROX/SIMETH SUSP 30 ML UDCUP ONE (01:40)
[2020-01-31] MEDS ORDERED: HYDRALAZINE HCL INJ/PF 20 MG/1 ML SDV ONE ×2 (02:40→18:04)
[2020-01-31] MEDS ORDERED: ZOLPIDEM TARTRATE 5 MG TABLET ONE (03:00)
[2020-01-31] MEDS ORDERED: ONDANSETRON HCL INJ/PF 4 MG/2 ML SDV ONE (03:40)
[2020-01-31] MEDS ORDERED: OXYTOCIN/NORMAL SALINE 20 UNIT/1,000 ML RTUINJ IV PRN (13:36)
[2020-01-31] MEDS ORDERED: OXYTOCIN/NORMAL SALINE 20 UNIT/1,000 ML RTUINJ ONE (14:25)
[2020-01-31] MEDS ORDERED: MORPHINE SULFATE 10 MG/ML INJ ONE (17:09)
[2020-01-31] MEDS ORDERED: PROMETHAZINE HCL INJ 25 MG/1 ML VIAL ONE (17:09)
[2020-01-31] MEDS ORDERED: PHENYLEPHRINE HCL INJ/PF 10 MG/1 ML SDV ONE (18:24)
[2020-01-31] MEDS ORDERED: FENTANYL/BUPIVACAINE/NS/PF 300 MCG/150 ML RTUINJ EPI ONE (18:25)
[2020-01-31] MEDS ORDERED: BUPIVACAINE HCL 0.25 % INJ/PF (2.5 MG/1 ML) 30 ML VIAL ONE (18:25)
[2020-01-31] MEDS ORDERED: EPHEDRINE SULFATE INJ 50 MG/1 ML AMPULE ONE (18:25)
[2020-01-31] MEDS ORDERED: FENTANYL CITRATE INJ/PF 100 MCG/2 ML AMPUL ONE (18:25)
[2020-01-31] MEDS ORDERED: DIBUCAINE 1% OINTMENT 28 GM TP PRN (21:29)
[2020-01-31] MEDS ORDERED: ACETAMINOPHEN WITH CODEINE #3 TABLET PO PRN ×2 (21:29)
[2020-01-31] MEDS ORDERED: MEASLES,MUMPS&RUBELLA VACC/PF 0.5 ML VIAL SUBCUT PRN (21:29)
[2020-01-31] MEDS ORDERED: BENZOCAINE/MENTHOL AEROSOL SPRAY 56 ML TOP PRN (21:29)
[2020-01-31] MEDS ORDERED: DIPH/PERTUSS(ACELL)/TETANUS VAC/PF 0.5 ML SYR (>=10YO) IM PRN (21:29)
--- NOTE | 2020-01-31 22:15 | Delivery Summary ---
Del Sum A-C Datetime Report Generated by CPN: 01/31/2020 22:15 DELIVERY PERSONNEL DELIVERY PERSONNEL: [id number] Delivery Doctor:: Beverley Spaulding MD Labor and Delivery Nurse:: Neli Cordero RNoccupational therapy manager Nurse:: Jennifer Vikas, RN MATERNAL INFORMATION Delivery Anesthesia: Epidural Medications After Delivery: Pitocin Bolus-Please Comment; Pitocin Drip 20 Units/1000ml NSS Delivery QBL: 50 Maternal Complications: None LABOR SUMMARY EDC: 02/04/2020 00:00 No. Babies in Womb: 1 Attempted: No Labor Anesthesia: Epidural LABOR INFORMATION Reason for Induction: Chronic Primary/Essential HTN Onset of Labor: 01/31/2020 17:01 Complete Dilatation: 01/31/2020 20:26 Cervical Ripening Agents: Cervidil Oxytocin: Induction Group B Beta Strep: negative Antibiotics # of Doses: n/a Steroids Given: None Reason Steroids Not Administered: Not Applicable MEMBRANES Membranes Rupture Method: Artificial Rupture of Membranes: 01/31/2020 17:01 Length of Rupture (hr): 3.48 Amniotic Fluid Color: Moderate Meconium Amniotic Fluid Amount: Small Amniotic Fluid Odor: None STAGES OF LABOR Stage 1 hr: 3 Stage 1 min: 25 Stage 2 hr: 0 Stage 2 min: 4 Stage 3 hr: 0 Stage 3 min: 4 Total Time in Labor hr: 3 Total Time in Labor min: 33 VAGINAL DELIVERY Episiotomy: None Other Laceration: bilateral labial laceration with repair Laceration Repair: Yes Sponge Count Correct: Yes Sharps Count Correct: Yes CSECTION DELIVERY Primary Indication: N/A Secondary Indication: N/A CSection Incidence: N/A Labor: N/A Elective: N/A CSection Incision: N/A BABY A INFORMATION Infant Delivery Date/Time: 01/31/2020 20:30 Method of Delivery: Vaginal Born in Route : No : N/A Forceps: N/A Vacuum Extraction: N/A Shoulder Dystocia : Yes PRESENTATION/POSITION BABY A Presentation: Cephalic Cephalic Presentation: Vertex Vertex Position: Left Occipital Anterior Breech Presentation: N/A PLACENTA INFORMATION BABY A Placenta Delivery Time : 01/31/2020 20:34 Placenta Method of Delivery: Spontaneous Placenta Status: Delivered SCORES BABY A Heart Rate 1 min: >100 bpm Resp Effort 1 min: Good Cry Reflex Irritability 1 min: Cough or Sneeze or Pulls Away Muscle Tone 1 min: Active Motion Color 1 min: Blue/Pale Resuscitation Effort 1 min: Tactile Stimulation SCORE 1 MIN: 8 Heart Rate 5 min: >100 bpm Resp Effort 5 min: Good Cry Reflex Irritability 5 min: Cough or Sneeze or Pulls Away Muscle Tone 5 min: Active Motion Color 5 min: Body [place], Extremities Blue Resuscitation Effort 5 min: Tactile Stimulation SCORE 5 MIN: 9 INFORMATION BABY A Gestational Age at Delivery: 39.3 Gestational Status: Full Term- 39- 40.6 Weeks Infant Outcome : Liveborn Infant Condition : Stable Infant Sex: Female IDENTIFICATION BABY A Infant Verification Date/Time: 01/31/2020 21:11 ID Band Number: [id number] Mother's Name Verified: Yes RN Verifying : Jacinto Codrero, RN and HBravo Quijano, RN WEIGHT/LENGTH BABY A Infant Birthweight (gm): 3015 Infant Weight (lb): 6 Infant Weight (oz): 10 Infant Length (in): 19.00 Infant Length (cm): 48.26 CORD INFORMATION BABY A No. Cord Vessels: 3 Nuchal Cord : N/A Cord Blood Taken: Yes-For Storage (Mom's Blood type +) Suction: Mouth ASSESSMENT BABY A Infant Complications: None Physical Findings at Delivery: Within Normal Limits; Other Physical Findings- Other: see nursery report Respirations: Appears Normal Skin to Skin: Yes Superintendent/ALS Called : No Infant Care By: Clarice Bean RN Transferred To: Remains with Mother BABY B INFORMATION : N/A
[2020-02-01] MEDS: IBUPROFEN 800 MG TABLET PO SCH ×4 (00:01→21:09)
[2020-02-01 07:06] LABS: HEMATOCRIT 29.3 % (36.0-47.0); MEAN CORPUSCULAR HEMOGLOBIN 25.2 pg (27.0-33.4); MEAN CORPUSCULAR HGB CONC 34.2 g/dL (32.0-36.0); MEAN CORPUSCULAR VOLUME 74 fl (80-97); PLATELET COUNT 219 10^3/uL (150-450); RED BLOOD COUNT 3.97 10^6/uL (3.72-5.28); RED CELL DISTRIBUTION WIDTH 16.4 % (11.5-14.0)
--- NOTE | 2020-02-01 09:05 | PDOC PROGRESS REPORT ---
Subjective-OB Progress Note for:: 02/01/20 - PP Day #1, doing well, no complaints, , A+, Rubella Immune Physical Exam (OB) Vital Signs: Temp Pulse Resp BP Pulse Ox 97.8 F 73 16 130/74 H 99 02/01/20 07:46 02/01/20 07:46 02/01/20 07:46 02/01/20 07:46 02/01/20 07:46 Intake & Output 01/31/20 02/01/20 02/02/20 06:59 06:59 06:59 Weight 116.5 kg - General General Appearance: Appears well, Alert In distress: None - PIH/Pre-Eclampsia DTR's: 1 + Clonus: Negative Headache: Absent Epigastric Pain: No Visual Changes: No - Lochia Lochia Amount: Scant < 10 ml Lochia Color: Rubra/Red - Abdomen Description: Soft, Round Hernia Present: No Fundal Description: Firm, Midline Fundal Height: u/u - u/2 - Respiratory Respiratory Status: No respiratory distress - Abdominal Distension: No distension Tenderness: Nontender - Genitourinary Genitourinary Note: voiding - Extremities Upper extremity: Normal inspection Lower extremities: Normal inspection - Neurological Cognition: Normal Orientation: AAOx4 - Psychological Associated symptoms: Normal affect, Normal mood - Skin Skin Temperature: Warm Skin Moisture: Dry Objective-Diagnostic Laboratory: 02/01/20 06:26 01/31/20 00:32 02/01/20 06:26 WBC 18.0 H RBC 3.97 Hgb 10.0 L Hct 29.3 L MCV 74 L MCH 25.2 L MCHC 34.2 RDW 16.4 H Plt Count 219 Assessment and Plan(PN) - Assessment and Plan (1) (normal spontaneous vaginal delivery) Is this a current diagnosis for this admission?: Yes (2) Cannabis abuse Is this a current diagnosis for this admission?: Yes (3) Gestational hypertension Qualifiers: Trimester: third trimester Qualified Code(s): O13.3 - Gestational [pregn harper-induced] hypertension without significant proteinuria, third trimester Is this a current diagnosis for this admission?: Yes Plan:: ambulation encouraged, Routine PP orders, watch BP - Time Spent with Patient Time with patient: Less than 15 minutes Medications reviewed and adjusted accordingly: Yes - Disposition Anticipated Discharge: Home Within: within 24 hours
[2020-02-01] MEDS: DOCUSATE SODIUM 100 MG CAPSULE PO SCH ×2 (09:56→18:43)
[2020-02-01] MEDS: SENNOSIDES/DOCUSATE 8.6-50 MG 1 EACH TABLET PO SCH (09:56)
[2020-02-01] MEDS: FERROUS SULFATE 325 MG TABLET PO SCH ×2 (09:56→18:43)
[2020-02-01] MEDS: PRENATAL VITAMIN W DHA CAPSULE PO SCH (09:56)
[2020-02-02] MEDS: IBUPROFEN 800 MG TABLET PO SCH (06:10)
[2020-02-02] MEDS: SENNOSIDES/DOCUSATE 8.6-50 MG 1 EACH TABLET PO SCH (09:55)
[2020-02-02] MEDS: PRENATAL VITAMIN W DHA CAPSULE PO SCH (09:55)
[2020-02-02] MEDS: FERROUS SULFATE 325 MG TABLET PO SCH (09:55)
[2020-02-02] MEDS: DOCUSATE SODIUM 100 MG CAPSULE PO SCH (09:55)
--- NOTE | 2020-02-02 11:21 | PDOC DISCHARGE SUMMARY ---
Impression - Admit/DC Date/PCP Admission Date/Primary Care Provider: 01/31/20 00:55 KEN CORDOVA MD Discharge Date: 02/02/20 - Discharge Diagnosis (1) (normal spontaneous vaginal delivery) Is this a current diagnosis for this admission?: Yes (2) Gestational hypertension Is this a current diagnosis for this admission?: Yes (3) Cannabis abuse Is this a current diagnosis for this admission?: Yes (4) Acute blood loss anemia Is this a current diagnosis for this admission?: Yes (5) Chronic hypertension affecting Is this a current diagnosis for this admission?: Yes (6) Encounter for induction of labor Is this a current diagnosis for this admission?: Yes (7) Obstetric labial laceration, delivered, current hospitalization Is this a current diagnosis for this admission?: Yes (8) Pre-eclampsia Is this a current diagnosis for this admission?: Yes - Assessment Summary: s/p ppd2. Stable, ready for discharge. Occasional mild range BPs, will give rx for electric blood pressure monitor, will take bp twice daily and call office with readings Friday. Reviewed warning s/s and reasons to present to [facility] or call clinic prior to next visit. Pt. asked questions and verbalized understanding. - Additional Information Resuscitation Status: Full Code Discharge Diet: As Tolerated, Regular Discharge Activity: Activity As Tolerated, Balance Activity w/Rest, No Lifting Over 10 Pounds, No tub bath, Walk Frequently Referrals: KEN CORDOVA MD [Primary Care Provider] - Prescriptions: Ibuprofen [Motrin 800 mg Tablet] 800 mg PO Q8HP PRN #20 tablet PRN Reason: For Pain Scale 1-3 Docusate Sodium [Colace 100 mg Capsule] 100 mg PO BID #60 capsule Home Medications: 95/Iron Fum/Folic/Dha [ + Dha Combo Pack] 1 tab PO DAILY 01/18/20 Ferrous Sulfate [Ferosul] 1 tab PO BID 01/30/20 Docusate Sodium [Colace 100 mg Capsule] 100 mg PO BID #60 capsule 02/02/20 Ibuprofen [Motrin 800 mg Tablet] 800 mg PO Q8HP PRN #20 tablet 02/02/20 Results Laboratory Results: WBC 18.0 10^3/uL (4.0-10.5) H 02/01/20 06:26 RBC 3.97 10^6/uL (3.72-5.28) 02/01/20 06:26 Hgb 10.0 g/dL (12.0-15.5) L 02/01/20 06:26 Hct 29.3 % (36.0-47.0) L 02/01/20 06:26 MCV 74 fl (80-97) L 02/01/20 06:26 MCH 25.2 pg (27.0-33.4) L 02/01/20 06:26 MCHC 34.2 g/dL (32.0-36.0) 02/01/20 06:26 RDW 16.4 % (11.5-14.0) H 02/01/20 06:26 Plt Count 219 10^3/uL (150-450) 02/01/20 06:26 Sodium 133.4 mmol/L (137-145) L 01/31/20 00:32 Potassium 4.5 mmol/L (3.6-5.0) 01/31/20 00:32 Chloride 102 mmol/L (98-107) 01/31/20 00:32 Carbon Dioxide 26 mmol/L (22-30) 01/31/20 00:32 Anion Gap 5 (5-19) 01/31/20 00:32 BUN 6 mg/dL (7-20) L 01/31/20 00:32 Creatinine 0.59 mg/dL (0.52-1.25) 01/31/20 00:32 Est GFR ( Amer) > 60 (>60) 01/31/20 00:32 Est GFR (MDRD) Non-Af > 60 (>60) 01/31/20 00:32 Glucose 82 mg/dL (75-110) 01/31/20 00:32 Uric Acid 5.2 mg/dL (2.5-6.2) 01/31/20 00:32 Calcium 9.3 mg/dL (8.4-10.2) 01/31/20 00:32 Total Bilirubin 0.6 mg/dL (0.2-1.3) 01/31/20 00:32 Direct Bilirubin 0.2 mg/dL (0.0-0.4) 01/31/20 00:32 Neonat Total Bilirubin Not Reportable 01/31/20 00:32 Neonat Direct Bilirubin Not Reportable 01/31/20 00:32 Neonat Indirect Bili Not Reportable 01/31/20 00:32 AST 17 U/L (14-36) 01/31/20 00:32 ALT 9 U/L (<35) 01/31/20 00:32 Alkaline Phosphatase 133 U/L (38-126) H 01/31/20 00:32 Lactate Dehydrogenase 126 U/L (120-246) 01/31/20 00:32 Total Protein 7.1 g/dL (6.3-8.2) 01/31/20 00:32 Albumin 3.3 g/dL (3.5-5.0) L 01/31/20 00:32 Urine Color YELLOW 01/31/20 00:40 Urine Appearance CLEAR 01/31/20 00:40 Urine pH 6.0 (5.0-9.0) 01/31/20 00:40 Ur Specific Patterson 1.009 01/31/20 00:40 Urine Protein NEGATIVE mg/dL (NEGATIVE) 01/31/20 00:40 Urine Glucose (UA) NEGATIVE mg/dL (NEGATIVE) 01/31/20 00:40 Urine Ketones NEGATIVE mg/dL (NEGATIVE) 01/31/20 00:40 Urine Blood LARGE (NEGATIVE) H 01/31/20 00:40 Urine Nitrite NEGATIVE (NEGATIVE) 01/31/20 00:40 Urine Bilirubin NEGATIVE (NEGATIVE) 01/31/20 00:40 Urine Urobilinogen 2.0 mg/dL (<2.0) H 01/31/20 00:40 Ur Leukocyte Esterase NEGATIVE (NEGATIVE) 01/31/20 00:40 Urine WBC (Auto) 3 /HPF 01/31/20 00:40 Urine RBC (Auto) 2 /HPF 01/31/20 00:40 U Hyaline Cast (Auto) 1 /LPF 01/31/20 00:40 Squamous Epi Cells Auto 2 /HPF 01/31/20 00:40 Urine Mucus (Auto) MOD /LPF 01/31/20 00:40 Urine Creatinine 82.9 mg/dL (16-327) 01/31/20 00:40 Protein/Creatinin Ratio 0.2 mg/mg (0.0-0.2) 01/31/20 00:40 Urine Total Protein 17.7 mg/dL (<12) H 01/31/20 00:40 Urine Ascorbic Acid 20 (NEGATIVE) H 01/31/20 00:40 Urine Opiates Screen NEGATIVE 01/31/20 00:40 Urine Methadone Screen NEGATIVE 01/31/20 00:40 Ur Barbiturates Screen NEGATIVE 01/31/20 00:40 Ur Phencyclidine Scrn NEGATIVE 01/31/20 00:40 Ur Amphetamines Screen NEGATIVE 01/31/20 00:40 U Benzodiazepines Scrn NEGATIVE 01/31/20 00:40 Urine Cocaine Screen NEGATIVE 01/31/20 00:40 U Marijuana (THC) Screen UNCONFIRMED POSITIVE 01/31/20 00:40 RPR NONREACTIVE (NONREACTIVE) 01/31/20 01:13 Blood Type A POSITIVE 01/31/20 01:13 Antibody Screen NEGATIVE 01/31/20 01:13
[2020-02-02 11:34] VITALS: BP 127/68
== END 2020-02-02 12:23 | disposition home or self-care (01) | DRG 807 ==
LOC: LC 23:23 → LR 01-31 00:55 → 2S 01-31 22:57
PROVIDERS: ADMIT Obstetrics & Gynecology; ATTEND Obstetrics & Gynecology
PROC: 10E0XZZ Delivery of Products of Conception, External Approach (ICD-10-PCS; principal; 2020-01-31)
PROC: 0HQ9XZZ Repair Perineum Skin, External Approach (ICD-10-PCS; 2020-01-31)
DX: O13.4 Gestational [pregnancy-induced] hypertension without significant proteinuria, complicating childbirth (principal); Z37.0 Single live birth; O14.94 Unspecified pre-eclampsia, complicating childbirth; O99.02 Anemia complicating childbirth; D57.3 Sickle-cell trait; O77.0 Labor and delivery complicated by meconium in amniotic fluid; O70.0 First degree perineal laceration during delivery; O99.324 Drug use complicating childbirth; F12.10 Cannabis abuse, uncomplicated; Z3A.39 39 weeks gestation of pregnancy
CPT/HCPCS: 36415; 80053; 80307; 80349; 81001; 82570; 83615; 84156; 84550; 85027; 86592; 86850; 86900; 86901; 94760; G0480; J0360; J2270; J2370; J2405; J2550; J2590; J3010; J3490